=== PATIENT | male | born 1965 | race Hispanic/Latino ===

== ENCOUNTER 2021-03-30 18:35 | Observation (INO) | payer SELFPAY ==
[2021-03-30 19:14] LABS: Absolute Lymphocytes (CBC) 4.5 K/uL (0.7-4.9); Basophils % 0.8 % (0-1.3); Hematocrit 46.8 % (39.6-49.0); Lymphocytes % 33.1 % (15.3-44.8); MPV 11.1 fL (7.6-11.3); RBC Red Blood Cell Count 5.25 M/uL (4.33-5.43)
[2021-03-30 19:37] LABS: ALT/SGPT 42 U/L (12-78); AST/SGOT 30 U/L (15-37); Albumin 4.1 g/dL (3.4-5.0); Alkaline Phosphatase 94 U/L (45-117); BUN Blood Urea Nitrogen 18 mg/dL (7-18); Bicarbonate 28 mmol/L (21-32); Bilirubin Direct 0.3 mg/dL (0-0.2); Glucose Level 155 mg/dL (74-106); Magnesium 2.1 mg/dL (1.8-2.4); NT PRO-BNP 71 pg/mL (<125); Potassium 3.6 mmol/L (3.5-5.1); Protein, Total 8.7 g/dL (6.4-8.2); Sodium Level 138 mmol/L (136-145); Troponin (Emerg Dept Use Only) < 0.02 ng/mL (0.0-0.045)
[2021-03-30] MEDS ORDERED: METOPROLOL TARTRATE 5 MG/5 ML INJ IV ONE (19:41)
[2021-03-30] MEDS ORDERED: NA CHLORIDE 0.9% 1,000 ML ONE (19:41)
[2021-03-30] MEDS ORDERED: ONDANSETRON 4 MG/2 ML VIAL ONE (19:41)
--- NOTE | 2021-03-30 19:47 | RAD REPORT ---
EXAM DESCRIPTION: Jovanna Single View03/30/2021 7:27 pm CLINICAL HISTORY: Weakness and dizziness COMPARISON: none FINDINGS: The lungs appear clear of acute infiltrate. The heart is borderline enlarged IMPRESSION: No acute abnormalities displayed
[2021-03-30 19:50] LABS: Protime INR 1.08
--- NOTE | 2021-03-30 20:36 | RAD REPORT ---
EXAM DESCRIPTION: CT - Head Brain Wo Cont - 03/30/2021 8:21 pm CLINICAL HISTORY: Dizziness COMPARISON: None. TECHNIQUE: Computed axial tomography of the head was obtained. IV contrast was not requested. All CT scans are performed using dose optimization technique as appropriate and may include automated exposure control or mA/KV adjustment according to patient size. FINDINGS: An intracranial bleed is not seen . The ventricles are normal in caliber. No extra-axial fluid collection is noted. Fluid within the sinuses/ mastoids is not seen. Chronic left maxillary sinusitis IMPRESSION: No acute intracranial abnormality is seen. If patient's symptoms persist MRI of the bra in would be recommended.
--- NOTE | 2021-03-30 20:36 | RAD REPORT ---
EXAM DESCRIPTION: Dionicio Angio03/30/2021 8:21 pm CLINICAL HISTORY: Dizziness and hypertension COMPARISON: None TECHNIQUE: 50 cc Isovue 370 was administered intravenously. 3D MIP reconstruction performed All CT scans are performed using dose optimization technique as appropriate and may include automated exposure control or mA/KV adjustment according to patient size. FINDINGS: The common carotid, internal carotid and external carotid arteries do not demonstrate a si gnificant stenosis. No significant plaque Vertebral arteries are codominant. No high-grade stenosis. No dissection seen IMPRESSION: No acute abnormality displayed NASCET criteria used. Mild 0-49% stenosis Moderate 50-69% stenosis Severe 70-99% stenosis
--- NOTE | 2021-03-30 20:40 | RAD REPORT ---
EXAM DESCRIPTION: CTHead angio03/30/2021 8:21 pm CLINICAL HISTORY: Dizziness COMPARISON: None TECHNIQUE: CT angiogram of the head was obtained. 3D MIPS reconstruction performed. All CT scans are performed using dose optimization technique as appropriate and may include automated exposure control or mA/KV adjustment according to patient size. FINDINGS: The basilar, internal carotid, anterior cerebral, middle cerebral and posterior cerebral a rteries are normal caliber. An aneurysm is not seen. A significant stenosis is not noted. IMPRESSION: No acute abnormality is displayed
--- NOTE | 2021-03-30 21:18 | EDPHYS ---
Physician Documentation [facility] Name: Caleb Guillen Age: 56 yrs Sex: Male : 1965 Arrival Date: 03/30/2021 Time: 18:37 Bed 5 Private MD: ED Physician Elma Kelsey HPI: 03/30 18:44 This 56 yrs old Male presents to ER via Wheelchair with complaints of High jmm Blood Pressure, Dizziness, Headache. 18:44 The patient presents with sense of spinning. Onset: The symptoms/episode began/occurred jmm acutely, 1 week(s) ago. Modifying factors: The symptoms are alleviated by nothing, the symptoms are aggravated by standing up. Associated signs and symptoms: Pertinent negatives: chest pain, shortness of breath. This is a 56 year old male with a history of htn that presents to the ED with complaints dizziness beginning approx 1 week ago. Saw his pcp whom prescribed hctz and meclizine with no relief. Symptoms have worsened. . Historical: - Allergies: 18:48 No Known Allergies; ss - Home Meds: 19:59 hydrochlorothiazide 25 mg Oral tab 1 tab once daily [Active]; df1 - PMHx: 18:48 Hypertensive disorder; ss - PSHx: 18:48 None; ss - Immunization history:: Client reports having NOT received the Covid vaccine. - Social history:: Smoking status: Patient denies any tobacco usage or history of. ROS: 18:44 Constitutional: Negative for fever, chills, and weight loss, Cardiovascular: Negative jmm for chest pain, palpitations, and edema, Respiratory: Negative for shortness of breath, cough, wheezing, and pleuritic chest pain. 18:44 Neuro: Positive for dizziness. 18:44 All other systems are negative. Exam: 18:44 Constitutional: This is a well developed, well nourished patient who is awake, alert, jmm and in no acute distress. Head/Face: atraumatic. Eyes: EOMI, no conjunctival erythema appreciated ENT: Moist Mucus Membranes Neck: Trachea midline, Supple Chest/axilla: Normal chest wall appearance and motion. Cardiovascular: Regular rate and rhythm. No edema appreciated Respiratory: Normal respirations, no respiratory distress appreciated Abdomen/GI: Non distended, soft Back: Normal ROM Skin: General appearance color normal MS/ Extremity: Moves all extremities, no obvious deformities appreciated, no edema noted to the lower extremities Neuro: Awake and alert, normal gait Psych: Behavior is normal, Mood is normal, Patient is cooperative and pleasant Vital Signs: 18:46 BP 183 / 81; Pulse 88; Resp 18; Pulse Ox 97% on R/A; Weight 154.22 kg; Height 6 ft. 2 ss in. (187.96 cm); Pain 0/10; 19:10 BP 181 / 84; Pulse 135; Resp 18; Pulse Ox 98% on R/A; bs2 19:30 BP 147 / 80; Pulse 71; Resp 18; Pulse Ox 98% ; Pain 0/10; bs2 20:56 BP 149 / 76 Supine; Pulse 73; bs2 20:56 BP 154 / 72 Sitting; Pulse 68; bs2 20:56 BP 163 / 83 Standing; Pulse 83; bs2 22:22 BP 126 / 78; Pulse 73; Resp 15; Temp 98.6; Pulse Ox 98% on R/A; Pain 0/10; bs2 18:46 Body Mass Index 43.65 (154.22 kg, 187.96 cm) ss 20:56 took pt for walk down the hallway heart rate went up to 98 while walking, pt does state bs2 some dizziness between sitting and standing, pt was able to walk unassisted and states he had minor dizziness MDM: 18:44 Patient medically screened. [facility] 21:16 Data reviewed: vital signs, nurses notes. Counseling: I had a detailed discussion with [facility] the patient and/or guardian regarding: the historical points, exam findings, and any diagnostic results supporting the discharge/admit diagnosis, lab results, radiology results, the need for further work-up and treatment in the hospital. ED course: I discussed the patient with Erick Butler whom accepted the patient to Dr. Cookie way. . 03/30 18:48 Order name: Basic Metabolic Panel [facility] 03/30 18:48 Order name: CBC with Diff; Complete Time: 19:22 [facility] 03/30 18:48 Order name: LFT's [facility] 03/30 18:48 Order name: Magnesium [facility] 03/30 18:48 Order name: NT PRO-BNP [facility] 03/30 18:48 Order name: PT-INR; Complete Time: 19:57 [facility] 03/30 18:48 Order name: Troponin (emerg Dept Use Only) [facility] 03/30 18:49 Order name: Basic Metabolic Panel [facility] 03/30 19:24 Order name: COVID-19 (Coronavirus) Document "Date of Onset" if Symptomatic [facility] 03/30 19:37 Order name: SARS-COV-2 RT PCR; Complete Time: 20:43 [facility] 03/30 21:19 Order name: TSH [facility] 03/30 21:19 Order name: T4 Free [facility] 03/30 21:19 Order name: UDS [facility] 03/30 18:48 Order name: XRAY Chest (1 view); Complete Time: 19:54 [facility] 03/30 18:48 Order name: EKG; Complete Time: 18:49 [facility] 03/30 18:48 Order name: Cardiac monitoring; Complete Time: 18:50 [facility] 03/30 18:48 Order name: EKG - Nurse/Tech; Complete Time: 18:53 [facility] 03/30 18:48 Order name: CT Head Brain wo Cont; Complete Time: 20:43 [facility] 03/30 18:48 Order name: CT Head Angio; Complete Time: 20:43 [facility] 03/30 18:48 Order name: CT Neck Angio; Complete Time: 20:43 [facility] 03/30 21:20 Order name: Thyroid Stimulating Hormone [facility] 03/30 21:20 Order name: T4 Free [facility] 03/30 21:20 Order name: Urine Drug Screen [facility] 03/30 18:48 Order name: IV Saline Lock; Complete Time: 18:59 [facility] 03/30 18:48 Order name: Labs collected and sent; Complete Time: 18:59 [facility] 03/30 18:48 Order name: O2 Per Protocol; Complete Time: 18:50 [facility] 03/30 18:48 Order name: O2 Sat Monitoring; Complete Time: 18:50 [facility] 03/30 19:46 Order name: Misc. Order: orthostatics, ambulate; Complete Time: 20:56 jm Administered Medications: 19:20 Drug: Metoprolol 5 mg Route: IVP; Site: right forearm; bs2 19:50 Follow up: Response: No adverse reaction; Cardiac rhythm changed bs2 19:20 Drug: NS 0.9% 1000 ml Route: IV; Rate: 1 bolus; Site: right forearm; bs2 22:18 Follow up: IV Status: Completed infusion bs2 19:20 Drug: Zofran (Ondansetron) 4 mg Route: IVP; Site: right forearm; bs2 19:50 Follow up: Response: No adverse reaction bs2 19:49 CANCELLED (route changee): Zofran (Ondansetron) 4 mg PO once bs2 22:17 Drug: Lopressor (metoprolol TARTRATE) 50 mg Route: PO; bs2 22:33 Follow up: Response: No adverse reaction bs2 22:18 Not Given (Physician Discretion; phyy): Meclizine 25 mg PO once bs2 Disposition: 03/31 08:52 Co-signature as Attending Physician, Elma Kelsey MD I agree with the assessment and sp3 plan of care. Disposition Summary: 03/30/21 21:17 Hospitalization Ordered Hospitalization Status: Observation [facility] Provider: Raj Gary Location: Telemetry/MedSurg (observation) jm Condition: Stable jm Problem: new jmm Symptoms: have improved jm Bed/Room Type: Standard [facility] Room Assignment: 224(03/30/21 22:21) Diagnosis - Tachycardia, unspecified jmm - Dizziness and giddiness [facility] Forms: - Medication Reconciliation Form jmm - SBAR form [facility] Signatures: Dispatcher [employer] EDMS Annie Brian RN RN Terry Flynn PA PA Jeannie Kulkarni RN RN ss Erick Butler, GIS MANAGER-C GIS MANAGER-Cla1 Elma Kelsey MD MD sp3 Iliana Gonzales RN RN bs2 Ryanne Talley df1 Corrections: (The following items were deleted from the chart) 03/30 19:37 19:25 CORONAVIRUS ordered. EDNM EDMS 19:49 18:49 Zofran (Ondansetron) 4 mg PO once ordered. jm bs2 20:00 18:48 Home Meds: Unknown BP medication; df1 22:21 21:17 jmm miguel a
--- NOTE | 2021-03-30 21:18 | ER ---
Nurse's Notes [facility] Name: Caleb Guillen Age: 56 yrs Sex: Male : 1965 Arrival Date: 03/30/2021 Time: 18:37 Bed 5 Private MD: Diagnosis: Tachycardia, unspecified;Dizziness and giddiness Presentation: 03/30 18:46 Chief complaint: Patient states: Intermittent dizziness that began 1 week ago. Pt was ss seen by a doctor and told it may be his blood pressure and started him on an unknown BP medication. HX of vertigo two years ago. Coronavirus screen: Client denies travel out of the [place] in the last 14 days. Ebola Screen: Patient denies exposure to infectious person. Patient denies travel to an Ebola-affected area in the 21 days before illness onset. Initial Sepsis Screen: Does the patient meet any 2 criteria? No. Patient's initial sepsis screen is negative. Does the patient have a suspected source of infection? No. Patient's initial sepsis screen is negative. Risk Assessment: Do you want to hurt yourself or someone else? Patient reports no desire to harm self or others. Onset of symptoms was March 23, 2021. 18:46 Method Of Arrival: Wheelchair ss 18:46 Acuity: DOMINGUEZ 3 ss Triage Assessment: 19:10 Headache History: Denies prior headaches. General: Appears in no apparent distress. bs2 obese, well groomed, well developed, well nourished, Behavior is cooperative, anxious. Pain: Also complains of. Pain: Denies pain. 19:55 Pain: Pain currently is 0 out of 10 on a pain scale. Pain began pt denies any pain. bs2 Historical: - Allergies: 18:48 No Known Allergies; ss - Home Meds: 19:59 hydrochlorothiazide 25 mg Oral tab 1 tab once daily [Active]; df1 - PMHx: 18:48 Hypertensive disorder; ss - PSHx: 18:48 None; ss - Immunization history:: Client reports having NOT received the Covid vaccine. - Social history:: Smoking status: Patient denies any tobacco usage or history of. Screenin:10 Abuse screen: Denies threats or abuse. Denies injuries from another. Nutritional bs2 screening: No deficits noted. Tuberculosis screening: No symptoms or risk factors identified. Fall Risk None identified. Assessment: 19:10 General: Appears in no apparent distress. comfortable, obese, well groomed, well bs2 developed, well nourished, Behavior is cooperative, appropriate for age, anxious. Pain: Denies pain. Neuro: No deficits noted. Reports dizziness, dizziness is intermittent. Cardiovascular: Reports lightheadedness, palpitations, Denies chest pain, Heart tones present Rhythm is SVT Chest pain is denied. 19:10 Respiratory: No deficits noted. GI: No deficits noted. : No deficits noted. EENT: No bs2 deficits noted. Derm: No deficits noted. Vital Signs: 18:46 BP 183 / 81; Pulse 88; Resp 18; Pulse Ox 97% on R/A; Weight 154.22 kg; Height 6 ft. 2 ss in. (187.96 cm); Pain 0/10; 19:10 BP 181 / 84; Pulse 135; Resp 18; Pulse Ox 98% on R/A; bs2 19:30 BP 147 / 80; Pulse 71; Resp 18; Pulse Ox 98% ; Pain 0/10; bs2 20:56 BP 149 / 76 Supine; Pulse 73; bs2 20:56 BP 154 / 72 Sitting; Pulse 68; bs2 20:56 BP 163 / 83 Standing; Pulse 83; bs2 22:22 BP 126 / 78; Pulse 73; Resp 15; Temp 98.6; Pulse Ox 98% on R/A; Pain 0/10; bs2 18:46 Body Mass Index 43.65 (154.22 kg, 187.96 cm) ss 20:56 took pt for walk down the hallway heart rate went up to 98 while walking, pt does state bs2 some dizziness between sitting and standing, pt was able to walk unassisted and states he had minor dizziness ED Course: 18:37 Patient arrived in ED. as 18:41 Terry Silva PA is PHCP. [facility] 18:41 Elma Kelsey MD is Attending Physician. [facility] 18:48 Triage completed. ss 18:48 Arm band placed on right wrist. ss 18:50 Dada Grace, FARHAD is Primary Nurse. bp 19:00 Basic Metabolic Panel Sent. bp 19:00 Inserted saline lock: 20 gauge in right forearm, using aseptic technique. Blood bp collected. 19:10 Patient has correct armband on for positive identification. Placed in gown. Bed in low bs2 position. Call light in reach. Side rails up X 1. Adult w/ patient. library monitor on. Pulse ox on. NIBP on. Door closed. Lights dimmed. Warm blanket given. 19:10 Troponin (emerg Dept Use Only) Sent. bs2 19:10 PT-INR Sent. bs2 19:10 NT PRO-BNP Sent. bs2 19:10 Magnesium Sent. bs2 19:10 LFT's Sent. bs2 19:10 CBC with Diff Sent. bs2 19:10 Basic Metabolic Panel Sent. bs2 19:27 XRAY Chest (1 view) In Process Unspecified. EDMS 19:50 COVID-19 (Coronavirus) Document "Date of Onset" if Symptomatic Sent. bs2 19:50 SARS-COV-2 RT PCR Sent. bs2 19:50 PT-INR Sent. bs2 19:54 No provider procedures requiring assistance completed. Patient admitted, IV remains in bs2 place. 20:21 CT Head Brain wo Cont In Process Unspecified. EDMS 20:21 CT Head Angio In Process Unspecified. EDMS 20:21 CT Neck Angio In Process Unspecified. EDMS 21:17 Raj Gary DO is Hospitalizing Provider. jmm 22:13 T4 Free Sent. df1 22:13 TSH Sent. df1 22:17 Urine Drug Screen Sent. bs2 22:17 T4 Free Sent. bs2 22:17 Thyroid Stimulating Hormone Sent. bs2 22:17 UDS Sent. bs2 Administered Medications: 19:20 Drug: Metoprolol 5 mg Route: IVP; Site: right forearm; bs2 19:50 Follow up: Response: No adverse reaction; Cardiac rhythm changed bs2 19:20 Drug: NS 0.9% 1000 ml Route: IV; Rate: 1 bolus; Site: right forearm; bs2 22:18 Follow up: IV Status: Completed infusion bs2 19:20 Drug: Zofran (Ondansetron) 4 mg Route: IVP; Site: right forearm; bs2 19:50 Follow up: Response: No adverse reaction bs2 19:49 CANCELLED (route changee): Zofran (Ondansetron) 4 mg PO once bs2 22:17 Drug: Lopressor (metoprolol TARTRATE) 50 mg Route: PO; bs2 22:33 Follow up: Response: No adverse reaction bs2 22:18 Not Given (Physician Discretion; phtoddy): Meclizine 25 mg PO once bs2 Outcome: 21:17 Decision to Hospitalize by Provider. don 22:23 Admitted to Tele accompanied by [facility], via wheelchair, room 224, with chart, Report bs2 called to [facility] 22:23 Condition: stable 22:23 Instructed on the need for admit. 22:55 Patient left the ED. df1 Signatures: Dispatcher [employer] EDMS Terry Silva PA PA jmm Martinez, Amelia as Smirch, Shelby, RN RN ss Dada Grace RN RN bp Iliana Gonzales RN RN bs2 Ryanne Talley df1 Corrections: (The following items were deleted from the chart) 20:00 18:48 Home Meds: Unknown BP medication; df1
--- NOTE | 2021-03-30 22:39 | P.HP ---
Certification for Inpatient Patient admitted to: Observation With expected LOS: <2 Midnights Patient will require the following post-hospital care: None Practitioner: I am a practitioner with admitting privileges, knowledge of patient current condition, hospital course, and medical plan of care. Services: Services provided to patient in accordance with Admission requirements found in Title 42 Section 412.3 of the Code of Federal Regulations Patient History Date of Service: 03/30/21 Primary Care Provider: None Reason for admission: Dizziness History of Present Illness: 56-year-old male with history of hypertension presents to the emergency department for dizziness. Patient reports 1 week history of intermittent dizziness described as "room spinning". Patient was evaluated in the emergency department labs were significant for white blood cell count 13.[address] head brain without contrast, head and neck angio negative for acute findings. No focal neurological deficits noted on exam, dizziness has improved but patient was noted to have multiple episodes of what appeared to be SVT on the monitor lasting 2 to 5 minutes each. EKG was not able to be obtained during any of these episodes. ED provider is to admit under observation for dizziness, palpitations. - Past Medical/Surgical History -: Hypertension -: None Psychosocial/ Personal History: Lives at home with family - Family History Father -: Hypertension, Diabetes Mother -: Hypertension, Diabetes - Social History Smoking Status: Never smoker Alcohol use: No CD- Drugs: No Caffeine use: Yes Place of Residence: Home Review of Systems 10-point ROS is otherwise unremarkable Cardiovascular: Palpitations, Light Headedness, As per HPI Neurological: Other (Dizziness) Physical Examination - Physical Exam General: Alert, In no apparent distress, Oriented x3 HEENT: Atraumatic, PERRLA, Mucous membr. moist/pink, EOMI, Sclerae nonicteric Neck: Supple, 2+ carotid pulse no bruit, No LAD, Without JVD or thyroid abnormality Respiratory: Clear to auscultation bilaterally, Normal air movement Cardiovascular: Regular rate/rhythm, Normal S1 S2 Gastrointestinal: Normal bowel sounds, No tenderness Musculoskeletal: No tenderness Integumentary: No rashes Neurological: Normal gait, Normal speech, Normal strength at 5/5 x4 extr, Normal tone, Normal affect Lymphatics: No axilla or inguinal lymphadenopathy - Studies Laboratory Data (last 24 hrs) 03/30/21 18:58: PT 12.4, INR 1.08 03/30/21 18:58: WBC 13.70 H, Hgb 15.6, Hct 46.8, Plt Count 189 03/30/21 18:58: Sodium 138, Potassium 3.6, BUN 18, Creatinine 0.67, Glucose 155 H, Magnesium 2.1, Total Bilirubin 1.0, AST 30, ALT 42, Alkaline Phosphatase 94 Assessment and Plan - Plan Assessment: Dizziness, palpitations Hypertension Plan: Dizziness, palpitations: Patient reports that symptoms sometimes do correspond with palpitations, possibly related to paroxysmal SVT versus atrial fibrillation. Nursing order in to obtain EKG with any tachyarrhythmia. Will provide with metoprolol 25 p.o. twice daily and monitor on telemetry. CT head brain without contrast in angio negative for any acute findings will obtain MRI to rule out CVA. Orthostatic vital signs negative. Will obtain UDS/thyroid panel. Consult cardiology as necessary. Hypertension: Continue with Toprol 25 mg p.o. twice daily. DVT PPX: Lovenox Code status: Full Discharge Plan: Home Plan to discharge in: 24 Hours - Advance Directives Does patient have a Living Will: No Does patient have a Durable POA for Healthcare: No - Code Status/Comfort Care Code Status Assessed: Yes (Full code) Critical Care: No Time Spent Managing Pts Care (In Minutes): 55
[2021-03-30] MEDS ORDERED: METOPROLOL TAR 50 MG TAB ONE (22:41)
[2021-03-30] MEDS ORDERED: ONDANSETRON 4 MG/2 ML VIAL IV PRN (22:46)
[2021-03-30] MEDS ORDERED: MECLIZINE HCL 12.5 MG TAB PO PRN (22:46)
[2021-03-30 22:48] LABS: Thyroid Stimulating Hormone 0.537 uIU/mL (0.360-3.740)
[2021-03-30 22:48] LABS: Barbiturates NEGATIVE (NEGATIVE); Benzodiazepines NEGATIVE (NEGATIVE); Cocaine NEGATIVE (NEGATIVE); METHAMPHETAM NEGATIVE (NEGATIVE); Methadone NEGATIVE (NEGATIVE); Opiates NEGATIVE (NEGATIVE); Phencyclidine NEGATIVE (NEGATIVE); THC Cannibis NEGATIVE (NEGATIVE)
[2021-03-30] MEDS ORDERED: ALPRAZOLAM 0.25 MG TABLET PO ONE (22:59)
[2021-03-30 23:14] VITALS: BMI 39.0
[2021-03-31] MEDS ORDERED: ALPRAZOLAM 0.25 MG TABLET ONE (00:10)
[2021-03-31 04:32] LABS: Absolute Lymphocytes (CBC) 2.6 K/uL (0.7-4.9); Basophils % 0.8 % (0-1.3); Hematocrit 43.1 % (39.6-49.0); Lymphocytes % 30.8 % (15.3-44.8); MPV 11.1 fL (7.6-11.3)
[2021-03-31 04:44] LABS: ALT/SGPT 36 U/L (12-78); AST/SGOT 25 U/L (15-37); Albumin 3.4 g/dL (3.4-5.0); Alkaline Phosphatase 77 U/L (45-117); BUN Blood Urea Nitrogen 16 mg/dL (7-18); Bicarbonate 29 mmol/L (21-32); Bilirubin Total 1.1 mg/dL (0.2-1.0); Glucose Level 142 mg/dL (74-106); HDL Cholesterol 45 mg/dL (40-60); LDL Cholesterol, Calculated 93 (<130); Magnesium 2.2 mg/dL (1.8-2.4); Protein, Total 7.5 g/dL (6.4-8.2); Sodium Level 142 mmol/L (136-145)
[2021-03-31 05:20] LABS: Urine Appearance CLEAR (Clear); Urine Bilirubin NEGATIVE (Negative); Urine Blood NEGATIVE (Negative); Urine Color YELLOW (Yellow); Urine Glucose NEGATIVE (Negative); Urine Protein NEGATIVE (Negative); Urine Specific Gravity >=1.030 (1.005-1.030)
[2021-03-31 05:27] LABS: Urine Microscopic Reflex NO UMIC
[2021-03-31] MEDS ORDERED: METOPROLOL TAR 25 MG TAB PO SCH (06:00)
[2021-03-31] MEDS ORDERED: INFLUENZA VACCINE (for 6+ mo) 0.5 ML DOSE IMVAC ONE (06:00)
[2021-03-31] MEDS ORDERED: ENOXAPARIN 40 MG/0.4 ML SQ SCH (09:00)
[2021-03-31 09:07] VITALS: BP 141/72; TEMP 97.9
--- NOTE | 2021-03-31 09:37 | P.DS ---
Admission Date: 03/30/21 Discharge Date: 03/31/21 Primary Care Provider: None Disposition: ROUTINE DISCHARGE Discharge Condition: GOOD Reason for Admission: Dizziness Consultations: Cardiology-Dr. Love Procedures: COVID: Negative CXR: COMPARISON: none FINDINGS: The lungs appear clear of acute infiltrate. The heart is borderline enlarged IMPRESSION: No acute abnormalities displayed CT Head: COMPARISON: None. TECHNIQUE: Computed axial tomography of the head was obtained. IV contrast was not requested. All CT scans are performed using dose optimization technique as appropriate and may include automated exposure control or mA/KV adjustment according to patient size. FINDINGS: An intracranial bleed is not seen . The ventricles are normal in caliber. No extra-axial fluid collection is noted. Fluid within the sinuses/ mastoids is not seen. Chronic left maxillary sinusitis IMPRESSION: No acute intracranial abnormality is seen CT Head Angio: COMPARISON: None TECHNIQUE: CT angiogram of the head was obtained. 3D MIPS reconstruction performed. All CT scans are performed using dose optimization technique as appropriate and may include automated exposure control or mA/KV adjustment according to patient size. FINDINGS: The basilar, internal carotid, anterior cerebral, middle cerebral and posterior cerebral arteries are normal caliber. An aneurysm is not seen. A significant stenosis is not noted. IMPRESSION: No acute abnormality is displayed CT Neck Angio: COMPARISON: None TECHNIQUE: 50 cc Isovue 370 was administered intravenously. 3D MIP reconstruction performed All CT scans are performed using dose optimization technique as appropriate and may include automated exposure control or mA/KV adjustment according to patient size. FINDINGS: The common carotid, internal carotid and external carotid arteries do not demonstrate a significant stenosis. No significant plaque Vertebral arteries are codominant. No high-grade stenosis. No dissection seen IMPRESSION: No acute abnormality displayed NASCET criteria used. Mild 0-49% stenosis Moderate 50-69% stenosis Severe 70-99% stenosis Medical Problem List: Dizziness, palpitations likely related to SVT Hypertension Suspect Prediabetes Obesity, BMI 39.1 Brief History of Present Illness: 56-year-old male with history of hypertension and vertigo. Patient reported dizziness. He reported dizziness for over a week. Patient evaluated in the emergency room. CT head unremarkable. CT angiogram also unremarkable. No focal deficits noted. Patient had multiple episodes of suspected SVT. This lasted about 2 to 5 minutes. Patient given metoprolol with improvement. Patient admitted for treatment and for further evaluation. Patient had reported some palpitations in the past. Hospital Course: Patient presented with episodes of dizziness and palpitations. Patient was admitted for observation. In the ER patient had elevated heart rate suspicious for SVT. EKG was not performed. Patient throughout the night had some episodes of sinus tachycardia. Patient was placed on metoprolol with improvement. Patient with history of hypertension previously on hydrochlorothiazide. Hydrochlorothiazide was discontinued. Patient did well overnight. Cardiac enzymes unremarkable. Patient was seen and evaluated by cardiology. No intervention was required at this time. CT with and without contrast of the head and neck were unremarkable. At discharge patient without significant dizziness or palpitations. Blood pressure improved. At discharge patient will continue with metoprolol 25 mg 1 pill twice daily. Recommend to discontinue hydrochlorothiazide. Recommend to monitor his blood pressure and heart rate closely. Recommend to maintain blood pressure less than 130/80. Recommend to establish care locally with a physician to follow-up this hospitalization and continue his care. Recommend follow-up with cardiology as an outpatient within 1 to 2 weeks to follow-up his hospitalization. Patient may require cardiac stress test and Holter monitor if symptoms persist. Echocardiogram obtained prior to discharge. Patient had slight elevation of blood sugar upon fasting. Hemoglobin A1c to be obtained to evaluate for prediabetes or diabetes mellitus type 2. Suspect underlying prediabetes. His hemoglobin A1c will need to be followed up by his PCP as an outpatient. Patient with BMI of 39.1. Lifestyle modification education provided. Vital Signs/Physical Exam: Temp Pulse Resp BP Pulse Ox 97.9 F 70 16 141/72 H 94 03/31/21 08:00 03/31/21 08:00 03/31/21 08:00 03/31/21 08:00 03/31/21 08:00 General: Alert, In no apparent distress, Oriented x3, Cooperative HEENT: Atraumatic Neck: Supple Respiratory: Clear to auscultation bilaterally, Normal air movement Cardiovascular: Normal pulses, Regular rate/rhythm Gastrointestinal: Normal bowel sounds, No ascites, No tenderness, No masses, No rebound, No guarding Musculoskeletal: No erythema, No tenderness, No warmth Integumentary: No tenderness/swelling Neurological: Normal speech, Normal strength at 5/5 x4 extr, Normal tone Laboratory Data at Discharge: WBC 8.50 K/uL (4.3-10.9) D 03/31/21 04:07 Hgb 14.3 g/dL (13.6-17.9) 03/31/21 04:07 Hct 43.1 % (39.6-49.0) 03/31/21 04:07 Plt Count 173 K/uL (152-406) 03/31/21 04:07 PT 12.4 SECONDS (9.5-12.5) 03/30/21 18:58 INR 1.08 03/30/21 18:58 Sodium 142 mmol/L (136-145) 03/31/21 04:07 Potassium 4.0 mmol/L (3.5-5.1) 03/31/21 04:07 BUN 16 mg/dL (7-18) 03/31/21 04:07 Creatinine 0.60 mg/dL (0.55-1.3) 03/31/21 04:07 Glucose 142 mg/dL (74-106) H 03/31/21 04:07 Magnesium 2.2 mg/dL (1.8-2.4) 03/31/21 04:07 Total Bilirubin 1.1 mg/dL (0.2-1.0) H 03/31/21 04:07 AST 25 U/L (15-37) 03/31/21 04:07 ALT 36 U/L (12-78) 03/31/21 04:07 Alkaline Phosphatase 77 U/L (45-117) 03/31/21 04:07 Triglycerides 111 mg/dL (<150) 03/31/21 04:07 Cholesterol 160 mg/dL (<200) 03/31/21 04:07 HDL Cholesterol 45 mg/dL (40-60) 03/31/21 04:07 Cholesterol/HDL Ratio 3.56 03/31/21 04:07 Home Medications: Metoprolol Tartrate [Lopressor*] 25 mg PO BID 6AM 6PM #60 tab 03/31/21 New Medications: Metoprolol Tartrate [Lopressor*] 25 mg PO BID 6AM 6PM #60 tab Physician Discharge Instructions: Patient presented with episodes of dizziness and palpitations. Patient was admitted for observation. In the ER patient had elevated heart rate suspicious for SVT. EKG was not performed. Patient throughout the night had some episodes of sinus tachycardia. Patient was placed on metoprolol with improvement. Patient with history of hypertension previously on hydrochlorothiazide. Hydrochlorothiazide was discontinued. Patient did well overnight. Cardiac enzymes unremarkable. Patient was seen and evaluated by cardiology. No intervention was required at this time. CT with and without contrast of the head and neck were unremarkable. At discharge patient without significant dizziness or palpitations. Blood pressure improved. At discharge patient will continue with metoprolol 25 mg 1 pill twice daily. Recommend to discontinue hydrochlorothiazide. Recommend to monitor his blood pressure and heart rate closely. Recommend to maintain blood pressure less than 130/80. Recommend to establish care locally with a physician to follow-up this hospitalization and continue his care. Recommend follow-up with cardiology as an outpatient within 1 to 2 weeks to follow-up his hospitalization. Patient may require cardiac stress test and Holter monitor if symptoms persist. Echocardiogram obtained prior to discharge. Patient had slight elevation of blood sugar upon fasting. Hemoglobin A1c to be obtained to evaluate for prediabetes or diabetes mellitus type 2. Suspect underlying prediabetes. His hemoglobin A1c will need to be followed up by his P CP as an outpatient. Patient with BMI of 39.1. Lifestyle modification education provided. Diet: AHA Activity: Ad win Followup: NONE,NONE [Primary Care Provider] - Time spent managing pt's care (in minutes): 55
[2021-03-31 12:02] VITALS: O2SAT 95
--- NOTE | 2021-03-31 12:14 | EKG ---
Test Date: 2021-03-30 Test Time: 19:30:41 Conduit Helper: AYANNA MEASUREMENT RESULTS: Intervals: Rate: 65 NE: 160 QRSD: 118 QT: 404 QTc: 420 [place]: P: 27 NE: 160 QRS: -52 T: 65 INTERPRETIVE STATEMENTS: Sinus rhythm with marked sinus arrhythmia Left anterior fascicular block Abnormal ECG Compared to ECG 03/30/2021 18:47:37 Left ventricular hypertrophy no longer present Early repolarization no longer present Myocardial infarct finding no longer present Electronically Signed On 03-31-21 12:12:50 CDT by Mukesh Love
--- NOTE | 2021-03-31 12:14 | EKG ---
Test Date: 2021-03-30 Test Time: 18:47:37 Catheterization Laboratory Technician: SHIRLEY MEASUREMENT RESULTS: Intervals: Rate: 80 [place]: 154 QRSD: 112 QT: 376 QTc: 433 [place]: P: 55 WA: 154 QRS: -47 T: 71 INTERPRETIVE STATEMENTS: Sinus rhythm with marked sinus arrhythmia Left anterior fascicular block Left ventricular hypertrophy with repolarization abnormality Cannot rule out Septal infarct, age undetermined Abnormal ECG Compared to ECG 10/17/2005 03:59:53 Left anterior fascicular block now present Left ventricular hypertrophy now present Early repolarization now present Myocardial infarct finding now present Electronically Signed On 03-31-21 12:12:51 CDT by Mukesh Love
--- NOTE | 2021-03-31 13:22 | ECHO ---
HEIGHT: 6 ft 2 in WEIGHT: 304 lb 6 oz DATE OF STUDY: 03/31/[address]: Raj Gary DO 2-DIMENSIONAL: YES M.MODE: YES DOPPLER: YES COLOR FLOW: YES TDS: YES PORTABLE: NO DEFINITY: NO BUBBLE STUDY: NO DIAGNOSIS: DIZZINESS CARDIAC HISTORY: CATHERIZATION: NO SURGERY: NO PROSTHETIC VALVE: NO PACEMAKER: NO MEASUREMENTS (cm) DIASTOLIC (NORMALS) SYSTOLIC (NORMALS) IVSd 1.2 (0.6-1.2) LA Diam (1.9-4.0) LVEF 56% LVIDd 5.2 (3.5-5.7) LVIDs 3.7 (2.0-3.5) %FS 30% LVPWd 1.2 (0.6-1.2) Ao Diam 3.6 (2.0-3.7) 2 DIMENSIONAL ASSESSMENT: RIGHT ATRIUM: NORMAL LEFT ATRIUM: NORMAL RIGHT VENTRICLE: NORMAL LEFT VENTRICLE: NORMAL TRICUSPID VALVE: NORMAL MITRAL VALVE: NORMAL PULMONIC VALVE: NORMAL AORTIC VALVE: NORMAL PERICARDIAL EFFUSION: NONE AORTIC ROOT: NORMAL LEFT VENTRICULAR WALL MOTION: NORMAL DOPPLER/COLOR FLOW: NORMAL COMMENTS: NORMAL 2D ECHOCARDIOGRAM WITH DOPPLER. NO WALL MOTION ABNORMALITY. NO EFFUSION. TECHNOLOGIST: Jama WORKMAN
--- NOTE | 2021-04-05 09:49 | CON ---
Date of Consultation: 03/31/[address] Gary' service on 03/30/2021. I saw the patient on 03/31/2021. Reason For Consultation: Hypertension. History Of Present Illness: Mr. Guillen is 56, has a history of hypertension for which he takes hy drochlorothiazide. Came in with elevated blood pressure, dizziness, and headache. Denied any chest pain or shortness of breath. Has been taking meclizine and hydrochlorothiazide for dizziness over th e last week or two without any improvement. Denied any PND, orthopnea, pedal edema, palpitations, or syncope. Past Medical History: As stated above. Allergies: NONE. Review of Systems: Negative. Social History: Negative. Family History: Noncontributory. Physical Examination: Vital Signs: Blood pressure 183/81, pulse ox showed 97% on room air saturation. He was in sinus rhy thm. HEENT: Negative. Neck: Supple with no bruit. Chest: Clear to auscultation and percussion. Cardiac: Exam revealed a regular rhythm and rate. No murmurs, gallops, or rubs. Abdomen: Benign. Extremities: Revealed no clubbing, cyanosis, or edema. Diagnostic Data: He had a head CT. Head CTA and neck CTA, all of which were normal. His chest x-ra y is normal. EKG showed what appeared to be left ventricular hypertrophy. Impression And Plan: Hypertension, very poorly controlled. The patient should be on a beta elisa in addition to his hydrochlorothiazide at home. Echocardiogram which was done today 03/31/2021 showe d a normal ejection fraction, normal echocardiogram. I would send him home on beta-blockers and hydr ochlorothiazide, would be reasonable to have him do an outpatient MPI and see me in the near future. JEY/GENEVA Voice ID: [id number] Report ID: [id number]
== END 2021-03-31 12:05 | disposition home or self-care (01) ==
LOC: ER 18:35 → ERHOLD 21:59 → 2ND 22:23
PROVIDERS: ADMIT Family Medicine; ATTEND Family Medicine
DX: R42 Dizziness and giddiness (principal); R00.2 Palpitations; I10 Essential (primary) hypertension; E66.9 Obesity, unspecified; Z68.39 Body mass index [BMI] 39.0-39.9, adult; Z20.822 Contact with and (suspected) exposure to COVID-19
CPT/HCPCS: 36415; 70450; 70496; 70498; 71045; 80048; 80053; 80061; 80076; 80307; 81003; 83036; 83735; 83880; 84439; 84443; 84484; 85025; 85610; 93005; 93306; 96361; 96374; 96375; 99285; G0378; J1650; J2405; J7030; Q9967; U0003